=== PATIENT | male | born 1950 | race Caucasian/White ===

== ENCOUNTER 2017-09-01 16:27 | Inpatient (IN) | payer MEDICARE ==
[~2017-09-01] VITALS: Ht 182.9 cm; Wt 99.6 kg
[~2017-09-01 16:27] MED LIST: AMLO-511 PO; COLC0.6T67 PO; LEVO50 PO; LOSA25TA21 PO; METO25 PO; MULT-1238 PO; OMEP20 PO; OXYB5 PO; OXYC10 PO; TAMS0.4C32 PO
[2017-09-01 18:33] VITALS: BP 155/96
[2017-09-01] MEDS ORDERED: LORazepam 2 MG TABLET PO PRN ×2 (18:45→19:15)
[2017-09-01] MEDS ORDERED: ZOLPIDEM TARTRATE 10 MG TABLET PO PRN ×2 (18:45→19:15)
[2017-09-01] MEDS ORDERED: QUEtiapine FUMARATE 100 MG TABLET PO PRN (19:15)
[2017-09-01] MEDS ORDERED: ZOLPIDEM TARTRATE 5 MG TABLET PO PRN (19:15)
[2017-09-01] MEDS ORDERED: LORazepam 1 MG TABLET PO PRN (19:15)
[2017-09-01 19:34] VITALS: BP 137/90
[2017-09-01] MEDS: OXYBUTYNIN CHLORIDE 5 MG TABLET PO SCH (21:16)
[2017-09-01] MEDS: METOPROLOL TARTRATE 25 MG TABLET PO SCH (21:16)
[2017-09-01] MEDS: TAMSULOSIN HCL 0.4 MG CAPSULE PO SCH (21:16)
[2017-09-01] MEDS: OMEPRAZOLE 20 MG CAPSULE PO SCH (21:16)
[2017-09-01] MEDS: AmLODIPine BESYLATE 5 MG TABLET PO SCH (21:16)
[2017-09-01] MEDS: COLCHICINE 0.6 MG TABLET PO SCH (21:26)
[2017-09-01 21:27] VITALS: BP 128/70
[2017-09-01] MEDS: LOSARTAN POTASSIUM 25 MG TABLET PO SCH (21:27)
[2017-09-01 22:30] VITALS: BP 140/80
[2017-09-02] VITALS (9 sets, daily range): BP systolic 110–140; BP diastolic 70–81
[2017-09-02] MEDS: LEVOTHYROXINE SODIUM 50 MCG TABLET PO SCH (06:46)
[2017-09-02 07:56] LABS: BASOPHILS % (AUTO) 0.5 % (0.0-2.0); EOSINOPHILS % (AUTO) 1.7 % (1.0-6.0); HEMOGLOBIN 13.1 g/dL (13.5-17.5); LYMPHOCYTES # (AUTO) 1.3 K/uL (1.0-4.8); MEAN CORPUSCULAR HEMOGLOBIN 31.8 pg (26.0-34.0); MEAN CORPUSCULAR HGB CONC 34.4 G/dL (31.0-37.0); MEAN CORPUSCULAR VOLUME 92 fL (80-100); MONOCYTES # (AUTO) 0.5 K/uL (0.1-1.0); MONOCYTES % (AUTO) 8.9 % (2.0-9.0); NEUTROPHILS # (AUTO) 3.4 K/uL (1.8-7.7); NEUTROPHILS % (AUTO) 63.9 % (40.0-70.0); PLATELET COUNT (AUTO) 156 K/uL (150-450); RED BLOOD CELL COUNT(AUTO) 4.12 MIL/uL (4.50-5.90); RED CELL DISTRIBUTION WIDTH 16.2 % (11.5-14.5)
[2017-09-02] MEDS: OXYBUTYNIN CHLORIDE 5 MG TABLET PO SCH (08:32)
[2017-09-02] MEDS: METOPROLOL TARTRATE 25 MG TABLET PO SCH (08:32)
[2017-09-02] MEDS: AmLODIPine BESYLATE 5 MG TABLET PO SCH (08:32)
[2017-09-02] MEDS: LOSARTAN POTASSIUM 25 MG TABLET PO SCH (08:32)
[2017-09-02] MEDS: COLCHICINE 0.6 MG TABLET PO SCH ×2 (08:32→17:06)
[2017-09-02] MEDS: OMEPRAZOLE 20 MG CAPSULE PO SCH (08:32)
[2017-09-02] MEDS: TAMSULOSIN HCL 0.4 MG CAPSULE PO SCH (08:32)
[2017-09-02] MEDS: CEPHALEXIN MONOHYDRATE 500 MG CAPSULE PO SCH ×4 (08:32→21:51)
[2017-09-02 08:48] LABS: ALANINE AMINOTRANSFERASE 84 U/L (12-78); ALBUMIN 3.3 g/dL (3.4-5.0); ALKALINE PHOSPHATASE 109 U/L (46-116); ANION GAP 10 mmol/L (8-16); ASPARTATE AMINOTRANSFERASE 50 U/L (15-37); BILIRUBIN,TOTAL 0.7 mg/dL (0.1-1.0); CALCIUM, TOTAL 8.8 mg/dL (8.8-10.5); CARBON DIOXIDE 26 mmol/L (22-29); CHLORIDE 106 mmol/L (98-107); CHOL/HDL RATIO 2.8 (4.2-7.3); CHOLESTEROL 173 mg/dL (131-200); CREATININE 0.82 mg/dL (0.60-1.30); FREE T4 (FREE THYROXINE) 0.99 ng/dL (0.76-1.46); GLOMERULAR FILTR. RATE CALC > 60 mL/min (>60); GLUCOSE,RANDOM 95 mg/dL (70-110); HDL CHOLESTEROL 62 mg/dL (40-60); LDL CHOL (CALC.) 96 mg/dL (0-130); POTASSIUM 4.1 mmol/L (3.5-5.1); SODIUM SERUM 142 mmol/L (136-145); THYROID STIMULATING HORMONE 4.46 uIU/mL (0.36-3.74); TOTAL PROTEIN, SERUM 7.3 g/dL (6.4-8.2); TRIGLYCERIDES 76 mg/dL (15-150); UREA NITROGEN, BLOOD 15 mg/dL (7-18)
[2017-09-02 09:02] LABS: HEMOGLOBIN A1C 5.9 % (4.5-6.2)
[2017-09-02] MEDS ORDERED: IBUPROFEN 400 MG TABLET PO PRN (14:00)
[2017-09-02] MEDS ORDERED: ACETAMINOPHEN 325 MG TABLET PO PRN (14:00)
[2017-09-02] MEDS: QUEtiapine FUMARATE 100 MG TABLET PO SCH (21:51)
[2017-09-03] VITALS: BP 126/65
[2017-09-03 04:01] VITALS: BP 119/65
[2017-09-03] MEDS: LEVOTHYROXINE SODIUM 50 MCG TABLET PO SCH (06:14)
[2017-09-03 07:31] LABS: AMPHET/METH SCREEN,URINE NEGATIVE (NEGATIVE); BARBITURATE SCREEN, URINE NEGATIVE (NEGATIVE); BENZODIAZEPINES SCREEN,URINE NEGATIVE (NEGATIVE); CANNABINOID SCREEN,URINE NEGATIVE (NEGATIVE); COCAINE SCREEN,URINE NEGATIVE (NEGATIVE); METHADONE SCREEN, URINE NEGATIVE (NEGATIVE); OPIATE SCREEN,URINE NEGATIVE (NEGATIVE); PHENCYCLIDINE SCREEN,URINE NEGATIVE (NEGATIVE)
[2017-09-03 07:41] LABS: CHOL/HDL RATIO 3.2 (4.2-7.3); THYROID STIMULATING HORMONE 4.65 uIU/mL (0.36-3.74)
[2017-09-03 08:20] VITALS: BP 111/78
[2017-09-03] MEDS: METOPROLOL TARTRATE 25 MG TABLET PO SCH (08:24)
[2017-09-03] MEDS: LOSARTAN POTASSIUM 25 MG TABLET PO SCH (08:24)
[2017-09-03] MEDS: CEPHALEXIN MONOHYDRATE 500 MG CAPSULE PO SCH ×4 (08:24→20:21)
[2017-09-03] MEDS: FLUoxetine HCL 10 MG CAPSULE PO SCH (08:24)
[2017-09-03] MEDS: AmLODIPine BESYLATE 5 MG TABLET PO SCH (08:24)
[2017-09-03] MEDS: COLCHICINE 0.6 MG TABLET PO SCH ×2 (08:24→16:45)
[2017-09-03] MEDS: TAMSULOSIN HCL 0.4 MG CAPSULE PO SCH (08:24)
[2017-09-03] MEDS: OXYBUTYNIN CHLORIDE 5 MG TABLET PO SCH (08:24)
[2017-09-03] MEDS: OMEPRAZOLE 20 MG CAPSULE PO SCH (08:24)
[2017-09-03 08:48] LABS: APPEARANCE,URINE CLEAR (CLEAR); GLUCOSE, URINE (UA) NEGATIVE (NEGATIVE); KETONES,URINE NEGATIVE (NEGATIVE); LEUKOCYTE ESTERASE ,URINE TRACE (NEGATIVE); NITRATE,URINE NEGATIVE (NEGATIVE); OCCULT BLOOD,URINE NEGATIVE (NEGATIVE); PROTEIN,URINE NEGATIVE (NEGATIVE)
[2017-09-03 08:50] LABS: BILIRUBIN,URINE PRELIM. POSITIVE (NEGATIVE)
[2017-09-03 09:02] LABS: RBC,URINE None Seen /HPF (0-2); WBC,URINE 0-2 /HPF (0-5)
[2017-09-03 09:03] LABS: BACTERIA,URINE None Seen /HPF (None Seen); SQUAMOUS EPITHELIAL CELL,UR Few /LPF (None Seen)
[2017-09-03 12:44] VITALS: BP 100/66
[2017-09-03 16:15] VITALS: BP 124/78
[2017-09-03] MEDS: QUEtiapine FUMARATE 100 MG TABLET PO SCH (20:21)
[2017-09-04 01:14] VITALS: BP 113/67
[2017-09-04] MEDS: LEVOTHYROXINE SODIUM 50 MCG TABLET PO SCH (06:09)
[2017-09-04] MEDS: COLCHICINE 0.6 MG TABLET PO SCH ×2 (08:40→16:34)
[2017-09-04] MEDS: LOSARTAN POTASSIUM 25 MG TABLET PO SCH (08:40)
[2017-09-04] MEDS: AmLODIPine BESYLATE 5 MG TABLET PO SCH (08:40)
[2017-09-04] MEDS: OXYBUTYNIN CHLORIDE 5 MG TABLET PO SCH (08:40)
[2017-09-04] MEDS: TAMSULOSIN HCL 0.4 MG CAPSULE PO SCH (08:40)
[2017-09-04] MEDS: OMEPRAZOLE 20 MG CAPSULE PO SCH (08:40)
[2017-09-04] MEDS: CEPHALEXIN MONOHYDRATE 500 MG CAPSULE PO SCH ×4 (08:40→20:30)
[2017-09-04] MEDS: FLUoxetine HCL 10 MG CAPSULE PO SCH (08:40)
[2017-09-04] MEDS: METOPROLOL TARTRATE 25 MG TABLET PO SCH (08:40)
[2017-09-04 09:13] VITALS: BP 129/83
[2017-09-04 16:04] VITALS: BP 115/69
[2017-09-04] MEDS: QUEtiapine FUMARATE 100 MG TABLET PO SCH (20:30)
[2017-09-05 00:23] VITALS: BP 135/69
[2017-09-05] MEDS: LEVOTHYROXINE SODIUM 50 MCG TABLET PO SCH (06:10)
[2017-09-05] MEDS: OMEPRAZOLE 20 MG CAPSULE PO SCH (08:17)
[2017-09-05] MEDS: FLUoxetine HCL 20 MG CAPSULE PO SCH (08:17)
[2017-09-05] MEDS: LOSARTAN POTASSIUM 25 MG TABLET PO SCH (08:18)
[2017-09-05] MEDS: TAMSULOSIN HCL 0.4 MG CAPSULE PO SCH (08:18)
[2017-09-05] MEDS: CEPHALEXIN MONOHYDRATE 500 MG CAPSULE PO SCH ×4 (08:18→20:30)
[2017-09-05] MEDS: AmLODIPine BESYLATE 5 MG TABLET PO SCH (08:18)
[2017-09-05] MEDS: METOPROLOL TARTRATE 25 MG TABLET PO SCH (08:18)
[2017-09-05] MEDS: OXYBUTYNIN CHLORIDE 5 MG TABLET PO SCH (08:18)
[2017-09-05] MEDS: COLCHICINE 0.6 MG TABLET PO SCH ×2 (08:18→16:33)
[2017-09-05 08:37] VITALS: BP 110/60
[2017-09-05 16:00] VITALS: BP 135/89
[2017-09-05] MEDS: QUEtiapine FUMARATE 100 MG TABLET PO SCH (20:29)
[2017-09-05] MEDS: FERROUS SULFATE 325 MG EC TABLET PO SCH (21:04)
[2017-09-06 00:43] VITALS: BP 123/70
[2017-09-06] MEDS: LEVOTHYROXINE SODIUM 50 MCG TABLET PO SCH (06:35)
[2017-09-06] MEDS: FERROUS SULFATE 325 MG EC TABLET PO SCH ×4 (07:01→20:31)
[2017-09-06 08:13] VITALS: BP 121/63
[2017-09-06] MEDS: COLCHICINE 0.6 MG TABLET PO SCH ×2 (08:23→16:34)
[2017-09-06] MEDS: LOSARTAN POTASSIUM 25 MG TABLET PO SCH (08:23)
[2017-09-06] MEDS: TAMSULOSIN HCL 0.4 MG CAPSULE PO SCH (08:24)
[2017-09-06] MEDS: OMEPRAZOLE 20 MG CAPSULE PO SCH (08:24)
[2017-09-06] MEDS: OXYBUTYNIN CHLORIDE 5 MG TABLET PO SCH (08:24)
[2017-09-06] MEDS: AmLODIPine BESYLATE 5 MG TABLET PO SCH (08:24)
[2017-09-06] MEDS: CEPHALEXIN MONOHYDRATE 500 MG CAPSULE PO SCH ×4 (08:24→20:31)
[2017-09-06] MEDS: FLUoxetine HCL 20 MG CAPSULE PO SCH (08:24)
[2017-09-06] MEDS: METOPROLOL TARTRATE 25 MG TABLET PO SCH (08:24)
[2017-09-06 16:02] VITALS: BP 117/80
[2017-09-06] MEDS: QUEtiapine FUMARATE 100 MG TABLET PO SCH (20:31)
[2017-09-07 00:15] VITALS: BP 110/62
[2017-09-07] MEDS: LEVOTHYROXINE SODIUM 50 MCG TABLET PO SCH (06:21)
[2017-09-07] MEDS: FERROUS SULFATE 325 MG EC TABLET PO SCH ×4 (07:01→20:36)
[2017-09-07] MEDS: AmLODIPine BESYLATE 5 MG TABLET PO SCH (08:13)
[2017-09-07] MEDS: OXYBUTYNIN CHLORIDE 5 MG TABLET PO SCH (08:13)
[2017-09-07] MEDS: METOPROLOL TARTRATE 25 MG TABLET PO SCH (08:13)
[2017-09-07] MEDS: TAMSULOSIN HCL 0.4 MG CAPSULE PO SCH (08:13)
[2017-09-07] MEDS: COLCHICINE 0.6 MG TABLET PO SCH ×2 (08:13→16:31)
[2017-09-07] MEDS: OMEPRAZOLE 20 MG CAPSULE PO SCH (08:13)
[2017-09-07] MEDS: FLUoxetine HCL 20 MG CAPSULE PO SCH (08:13)
[2017-09-07] MEDS: LOSARTAN POTASSIUM 25 MG TABLET PO SCH (08:13)
[2017-09-07] MEDS: CEPHALEXIN MONOHYDRATE 500 MG CAPSULE PO SCH ×4 (08:13→20:36)
[2017-09-07 08:28] VITALS: BP 124/69
[2017-09-07 16:03] VITALS: BP 107/65
[2017-09-07] MEDS: QUEtiapine FUMARATE 100 MG TABLET PO SCH (20:36)
[2017-09-08] MEDS: FERROUS SULFATE 325 MG EC TABLET PO SCH ×4 (06:40→20:16)
[2017-09-08] MEDS: LEVOTHYROXINE SODIUM 50 MCG TABLET PO SCH (06:40)
[2017-09-08 06:50] VITALS: BP 125/63
[2017-09-08] MEDS: LOSARTAN POTASSIUM 25 MG TABLET PO SCH (08:23)
[2017-09-08] MEDS: COLCHICINE 0.6 MG TABLET PO SCH ×2 (08:23→17:06)
[2017-09-08] MEDS: FLUoxetine HCL 20 MG CAPSULE PO SCH (08:23)
[2017-09-08] MEDS: OMEPRAZOLE 20 MG CAPSULE PO SCH (08:23)
[2017-09-08] MEDS: TAMSULOSIN HCL 0.4 MG CAPSULE PO SCH (08:23)
[2017-09-08] MEDS: OXYBUTYNIN CHLORIDE 5 MG TABLET PO SCH (08:24)
[2017-09-08] MEDS: CEPHALEXIN MONOHYDRATE 500 MG CAPSULE PO SCH ×3 (08:24→17:06)
[2017-09-08] MEDS: AmLODIPine BESYLATE 5 MG TABLET PO SCH (08:24)
[2017-09-08] MEDS: METOPROLOL TARTRATE 25 MG TABLET PO SCH (08:24)
[2017-09-08 08:32] VITALS: BP 136/82
[2017-09-08 16:09] VITALS: BP 111/61
[2017-09-08] MEDS: QUEtiapine FUMARATE 100 MG TABLET PO SCH (20:16)
[2017-09-09 06:25] VITALS: BP 131/85
[2017-09-09] MEDS: FERROUS SULFATE 325 MG EC TABLET PO SCH ×4 (06:50→20:37)
[2017-09-09] MEDS: LEVOTHYROXINE SODIUM 50 MCG TABLET PO SCH (06:50)
[2017-09-09 08:21] VITALS: BP 144/67
[2017-09-09] MEDS: AmLODIPine BESYLATE 5 MG TABLET PO SCH (08:29)
[2017-09-09] MEDS: FLUoxetine HCL 20 MG CAPSULE PO SCH (08:29)
[2017-09-09] MEDS: OMEPRAZOLE 20 MG CAPSULE PO SCH (08:29)
[2017-09-09] MEDS: TAMSULOSIN HCL 0.4 MG CAPSULE PO SCH (08:29)
[2017-09-09] MEDS: COLCHICINE 0.6 MG TABLET PO SCH ×2 (08:29→16:37)
[2017-09-09] MEDS: LOSARTAN POTASSIUM 25 MG TABLET PO SCH (08:30)
[2017-09-09] MEDS: METOPROLOL TARTRATE 25 MG TABLET PO SCH (08:30)
[2017-09-09] MEDS: OXYBUTYNIN CHLORIDE 5 MG TABLET PO SCH (08:30)
[2017-09-09 16:20] VITALS: BP 109/72
[2017-09-09] MEDS: QUEtiapine FUMARATE 100 MG TABLET PO SCH (20:37)
[2017-09-10 00:48] VITALS: BP 123/80
[2017-09-10] MEDS: FERROUS SULFATE 325 MG EC TABLET PO SCH ×4 (06:13→20:32)
[2017-09-10] MEDS: LEVOTHYROXINE SODIUM 50 MCG TABLET PO SCH (06:14)
[2017-09-10 08:26] VITALS: BP 122/75
[2017-09-10] MEDS: LOSARTAN POTASSIUM 25 MG TABLET PO SCH (08:28)
[2017-09-10] MEDS: TAMSULOSIN HCL 0.4 MG CAPSULE PO SCH (08:28)
[2017-09-10] MEDS: AmLODIPine BESYLATE 5 MG TABLET PO SCH (08:28)
[2017-09-10] MEDS: OMEPRAZOLE 20 MG CAPSULE PO SCH (08:28)
[2017-09-10] MEDS: COLCHICINE 0.6 MG TABLET PO SCH ×2 (08:28→16:33)
[2017-09-10] MEDS: OXYBUTYNIN CHLORIDE 5 MG TABLET PO SCH (08:29)
[2017-09-10] MEDS: FLUoxetine HCL 20 MG CAPSULE PO SCH (08:29)
[2017-09-10] MEDS: METOPROLOL TARTRATE 25 MG TABLET PO SCH (08:29)
[2017-09-10 16:28] VITALS: BP 129/76
[2017-09-10] MEDS: QUEtiapine FUMARATE 100 MG TABLET PO SCH (20:32)
[2017-09-11] VITALS: BP 123/71
[2017-09-11] MEDS: LEVOTHYROXINE SODIUM 50 MCG TABLET PO SCH (06:46)
[2017-09-11] MEDS: FERROUS SULFATE 325 MG EC TABLET PO SCH ×4 (06:47→20:32)
[2017-09-11] MEDS: AmLODIPine BESYLATE 5 MG TABLET PO SCH (08:24)
[2017-09-11] MEDS: COLCHICINE 0.6 MG TABLET PO SCH ×2 (08:24→16:30)
[2017-09-11] MEDS: METOPROLOL TARTRATE 25 MG TABLET PO SCH (08:24)
[2017-09-11] MEDS: LOSARTAN POTASSIUM 25 MG TABLET PO SCH (08:24)
[2017-09-11] MEDS: OXYBUTYNIN CHLORIDE 5 MG TABLET PO SCH (08:24)
[2017-09-11] MEDS: OMEPRAZOLE 20 MG CAPSULE PO SCH (08:24)
[2017-09-11] MEDS: TAMSULOSIN HCL 0.4 MG CAPSULE PO SCH (08:24)
[2017-09-11] MEDS: FLUoxetine HCL 20 MG CAPSULE PO SCH (08:24)
[2017-09-11 08:30] VITALS: BP 134/88
[2017-09-11 16:15] VITALS: BP 106/72
[2017-09-11] MEDS: QUEtiapine FUMARATE 100 MG TABLET PO SCH (20:32)
[2017-09-12] MEDS: FERROUS SULFATE 325 MG EC TABLET PO SCH ×4 (06:32→20:36)
[2017-09-12] MEDS: LEVOTHYROXINE SODIUM 50 MCG TABLET PO SCH (06:32)
[2017-09-12 07:00] VITALS: BP 130/89
[2017-09-12 08:07] VITALS: BP 129/69
[2017-09-12] MEDS: COLCHICINE 0.6 MG TABLET PO SCH ×2 (08:12→16:38)
[2017-09-12] MEDS: OXYBUTYNIN CHLORIDE 5 MG TABLET PO SCH (08:12)
[2017-09-12] MEDS: AmLODIPine BESYLATE 5 MG TABLET PO SCH (08:12)
[2017-09-12] MEDS: TAMSULOSIN HCL 0.4 MG CAPSULE PO SCH (08:12)
[2017-09-12] MEDS: LOSARTAN POTASSIUM 25 MG TABLET PO SCH (08:12)
[2017-09-12] MEDS: FLUoxetine HCL 20 MG CAPSULE PO SCH (08:12)
[2017-09-12] MEDS: METOPROLOL TARTRATE 25 MG TABLET PO SCH (08:12)
[2017-09-12] MEDS: OMEPRAZOLE 20 MG CAPSULE PO SCH (08:12)
[2017-09-12 16:16] VITALS: BP 108/60
[2017-09-12] MEDS: QUEtiapine FUMARATE 100 MG TABLET PO SCH (20:36)
[2017-09-13 01:38] VITALS: BP 108/64
[2017-09-13] MEDS: LEVOTHYROXINE SODIUM 50 MCG TABLET PO SCH (06:36)
[2017-09-13] MEDS: FERROUS SULFATE 325 MG EC TABLET PO SCH ×4 (06:36→20:30)
[2017-09-13 08:03] VITALS: BP 106/72
[2017-09-13 08:40] VITALS: BP 115/72
[2017-09-13] MEDS: AmLODIPine BESYLATE 5 MG TABLET PO SCH (08:42)
[2017-09-13] MEDS: TAMSULOSIN HCL 0.4 MG CAPSULE PO SCH (08:42)
[2017-09-13] MEDS: METOPROLOL TARTRATE 25 MG TABLET PO SCH (08:42)
[2017-09-13] MEDS: FLUoxetine HCL 20 MG CAPSULE PO SCH (08:42)
[2017-09-13] MEDS: OXYBUTYNIN CHLORIDE 5 MG TABLET PO SCH (08:42)
[2017-09-13] MEDS: COLCHICINE 0.6 MG TABLET PO SCH ×2 (08:42→16:32)
[2017-09-13] MEDS: OMEPRAZOLE 20 MG CAPSULE PO SCH (08:42)
[2017-09-13] MEDS: LOSARTAN POTASSIUM 25 MG TABLET PO SCH (08:42)
[2017-09-13 16:22] VITALS: BP 102/67
[2017-09-13] MEDS: QUEtiapine FUMARATE 100 MG TABLET PO SCH (20:30)
[2017-09-14] VITALS: BP 134/79
[2017-09-14] MEDS: FERROUS SULFATE 325 MG EC TABLET PO SCH ×4 (06:11→20:36)
[2017-09-14] MEDS: LEVOTHYROXINE SODIUM 50 MCG TABLET PO SCH (06:11)
[2017-09-14 08:11] VITALS: BP 139/86
[2017-09-14] MEDS: METOPROLOL TARTRATE 25 MG TABLET PO SCH (08:14)
[2017-09-14] MEDS: TAMSULOSIN HCL 0.4 MG CAPSULE PO SCH (08:14)
[2017-09-14] MEDS: AmLODIPine BESYLATE 5 MG TABLET PO SCH (08:14)
[2017-09-14] MEDS: FLUoxetine HCL 20 MG CAPSULE PO SCH (08:14)
[2017-09-14] MEDS: OMEPRAZOLE 20 MG CAPSULE PO SCH (08:14)
[2017-09-14] MEDS: COLCHICINE 0.6 MG TABLET PO SCH ×2 (08:14→16:30)
[2017-09-14] MEDS: OXYBUTYNIN CHLORIDE 5 MG TABLET PO SCH (08:14)
[2017-09-14] MEDS: LOSARTAN POTASSIUM 25 MG TABLET PO SCH (08:14)
[2017-09-14 16:17] VITALS: BP 107/68
[2017-09-14] MEDS: QUEtiapine FUMARATE 100 MG TABLET PO SCH (20:37)
[2017-09-15 00:26] VITALS: BP 125/69
[2017-09-15] MEDS ORDERED: FLUO-191 PO (04:39)
[2017-09-15] MEDS ORDERED: FERR-89 PO (04:39)
[2017-09-15] MEDS ORDERED: QUET200T PO (04:39)
[2017-09-15] MEDS: FERROUS SULFATE 325 MG EC TABLET PO SCH (06:35)
[2017-09-15] MEDS: LEVOTHYROXINE SODIUM 50 MCG TABLET PO SCH (06:35)
== END 2017-09-15 08:10 | disposition home or self-care (01) | DRG 885 ==
LOC: B2X 19:04
PROVIDERS: ADMIT Psychiatry & Neurology Psychiatry; ATTEND Psychiatry & Neurology Psychiatry
DX: F33.2 Major depressive disorder, recurrent severe without psychotic features (principal); R45.851 Suicidal ideations; J44.9 Chronic obstructive pulmonary disease, unspecified; D64.9 Anemia, unspecified; E03.9 Hypothyroidism, unspecified; E55.9 Vitamin D deficiency, unspecified; F10.10 Alcohol abuse, uncomplicated; F17.200 Nicotine dependence, unspecified, uncomplicated; G47.00 Insomnia, unspecified; I10 Essential (primary) hypertension; K21.9 Gastro-esophageal reflux disease without esophagitis; M10.9 Gout, unspecified; N40.1 Benign prostatic hyperplasia with lower urinary tract symptoms; R32 Unspecified urinary incontinence
CPT/HCPCS: 80307; 83036; 84439; 84443